=== PATIENT | male | born 1975 | race Caucasian/White ===

== ENCOUNTER 2017-12-24 17:26 | Emergency (ER) | payer OTHER ==
[~2017-12-24] VITALS: Ht 180.3 cm; Wt 90.7 kg
[2017-12-24 17:34] VITALS: BP 139/87
[2017-12-24] MEDS ORDERED: NORCO 5-325 TA1 EACH PO (17:39)
[2017-12-24] MEDS ORDERED: AMOXICILLIN 50500 MG PO (17:39)
== END 2017-12-24 17:51 | disposition home or self-care (01) ==
LOC: M.ERS 17:26
DX: K04.7 Periapical abscess without sinus (principal)

== ENCOUNTER 2018-01-22 12:09 | Emergency (ER) | payer OTHER ==
[~2018-01-22] VITALS: Ht 195.6 cm; Wt 108.9 kg
[~2018-01-22 12:09] MED LIST: AMOXICILLIN 50500 MG PO; NORCO 5-325 TA1 EACH PO
[2018-01-22] MEDS ORDERED: PENICILLIN V P500 MG PO (13:48)
[2018-01-22] MEDS ORDERED: HYDROCODONE-AP1 EAC6 PO (13:48)
[2018-01-22 14:01] VITALS: BP 129/96
== END 2018-01-22 14:02 | disposition home or self-care (01) ==
LOC: M.ERS 12:09
DX: K04.7 Periapical abscess without sinus (principal)

== ENCOUNTER 2019-07-01 23:35 | Emergency (ER) | payer BC ==
[~2019-07-01] VITALS: Ht 195.6 cm; Wt 108.9 kg
[~2019-07-01 23:35] MED LIST changes: +HYDROCODONE-AP1 EAC6 PO; +PENICILLIN V P500 MG PO
[2019-07-02] MEDS ORDERED: HYDROCODON-ACE1 EAC8 PO (00:38)
[2019-07-02] MEDS ORDERED: FLEXERIL PO (00:38)
[2019-07-02 00:54] VITALS: BP 144/87
== END 2019-07-02 00:54 | disposition home or self-care (01) ==
LOC: M.ERS 23:35
DX: M62.830 Muscle spasm of back (principal); M54.6 Pain in thoracic spine